=== PATIENT | male | born 1940 | race Caucasian/White ===

== ENCOUNTER 2017-11-26 15:13 | Emergency (ER) | payer OTHER ==
[~2017-11-26] VITALS: Ht 185.4 cm; Wt 152.7 kg
[~2017-11-26 15:13] MED LIST: ALEVE220 M2 PO; ATROVENT 00.5 MG/2.5 IH; ATROVENT H200 INHALA IH; BENICAR20 MG PO; BENICAR40 MG PO; CRESTOR20 MG PO; FLONASE16 G1 BOTH NARES; FLOVENT DISKUS1 DIS2 IH; FLUTICASONE PRO16 GM BOTH NARES; FUROSEMIDE20 MG PO; FUROSEMIDE40 MG PO; GARCINIA CAMBO1 EACH PO; GLUCOSAMINE H1500 MG PO; LEVOFLOXACIN750 MG PO; LOPRESSOR100 M1 PO; MACROBID100 MG PO; METOPROLOL TAR100 MG PO; NIACIN ER500 MG PO; OMEPRAZOLE40 M1 PO; PREDNISONE10 MG PO; SPIRIVA1 INHALATI IH; SPIRONOLACTONE25 MG PO; SYMBICORT60 INHALAT IH; TAMSULOSIN HCL0.4 MG PO; TEMOVATE 0.05%15 G1 TP; WARFARIN SODIU7.5 MG PO; WARFARIN SODIUM1 MG PO; WARFARIN SODIUM4 MG PO; WARFARIN SODIUM5 MG PO; ZANTAC150 MG PO; [UNRECOGNIZED DRUG - OTHER] TP
[2017-11-26 16:24] LABS: BASOPHIL (%) 0.5 % (0-1); EOSINOPHIL (%) 4.7 % (0-5); EOSINOPHIL COUNT 0.4 K/uL (0-0.3); HEMATOCRIT 35.8 % (38.0-50.0); HEMOGLOBIN 11.3 G/DL (12.5-16.6); IMMATURE GRANULOCYTE (%) 0.5 % (0.0-0.7); LYMPHOCYTE (%) 10.5 % (15-42); LYMPHOCYTE COUNT 0.9 K/uL (1.0-2.8); MCH 31.7 PG (29.0-34.0); MCHC 31.6 G/DL (30.0-36.0); MCV 100.3 FL (86-99); MONOCYTE (%) 8.9 % (3-12); MONOCYTE COUNT 0.7 K/uL (0-0.8); NEUTROPHIL (%) 74.9 % (45-76); NEUTROPHIL COUNT 6.1 K/uL (1.8-6.4); PLATELET COUNT 105 K/uL (156-360); RBC DIS.WIDTH-CV 12.3 % (11.8-14.6); RBC DIS.WIDTH-SD 45.7 % (39-53); RED BLOOD COUNT 3.57 M/uL (4.00-5.50); WHITE BLOOD COUNT 8.1 K/uL (4.1-10.2)
[2017-11-26 16:34] LABS: CHLORIDE 94 mEq/L (99-109); POTASSIUM 4.6 mEq/L (3.7-5.4); SODIUM 139 mEq/L (136-147)
[2017-11-26 16:36] LABS: GLUCOSE 141 mg/dL (70-99)
[2017-11-26 16:40] LABS: CREATININE 1.2 mg/dL (0.6-1.3); GFR ESTIMATE (CALCULATED) > 59 mL/min/ (58.99-99999)
[2017-11-26 16:41] LABS: UREA NITROGEN (BUN) 24 mg/dL (9-23)
[2017-11-26] MEDS ORDERED: PERCOCET 5/31 TABLET PO (20:21)
[2017-11-26 20:36] VITALS: BP 98/55
== END 2017-11-26 20:36 | disposition home or self-care (01) ==
LOC: EME 15:13
PROVIDERS: Emergency Medicine
DX: S02.2XXA Fracture of nasal bones, initial encounter for closed fracture (principal); S01.21XA Laceration without foreign body of nose, initial encounter; R07.81 Pleurodynia; W01.0XXA Fall on same level from slipping, tripping and stumbling without subsequent striking against object, initial encounter; Y93.01 Activity, walking, marching and hiking; Y92.480 Sidewalk as the place of occurrence of the external cause; Z23 Encounter for immunization; Z79.01 Long term (current) use of anticoagulants; J44.9 Chronic obstructive pulmonary disease, unspecified; Z95.0 Presence of cardiac pacemaker; K21.9 Gastro-esophageal reflux disease without esophagitis; N40.0 Benign prostatic hyperplasia without lower urinary tract symptoms; Z87.891 Personal history of nicotine dependence
CPT/HCPCS: 70450; 70486; 71046; 71260; 74177; 80048; 85025; 86850; 86900; 86901; 99281; 99285

== ENCOUNTER 2017-12-19 14:51 | Emergency (ER) | payer OTHER ==
[~2017-12-19] VITALS: Ht 188 cm; Wt 151.2 kg
[~2017-12-19 14:51] MED LIST changes: +PERCOCET 5/31 TABLET PO
[2017-12-19 15:18] LABS: HEMATOCRIT 37.1 % (38.0-50.0); HEMOGLOBIN 11.8 G/DL (12.5-16.6); MCH 31.6 PG (29.0-34.0); MCHC 31.8 G/DL (30.0-36.0); MCV 99.5 FL (86-99); PLATELET COUNT 116 K/uL (156-360); RBC DIS.WIDTH-CV 12.2 % (11.8-14.6); RBC DIS.WIDTH-SD 44.6 % (39-53); RED BLOOD COUNT 3.73 M/uL (4.00-5.50); WHITE BLOOD COUNT 7.2 K/uL (4.1-10.2)
[2017-12-19 15:23] LABS: VENOUS PCO2 87 mm Hg (41-51)
[2017-12-19 15:24] LABS: CARBON DIOXIDE (BICARBONATE) > 40.0 MEQ/L (20-31)
[2017-12-19 15:30] LABS: CHLORIDE 94 mEq/L (99-109); POTASSIUM 4.2 mEq/L (3.7-5.4); SODIUM 143 mEq/L (136-147)
[2017-12-19 15:35] LABS: CREATININE 1.3 mg/dL (0.6-1.3); GFR ESTIMATE (CALCULATED) 57 mL/min/ (58.99-99999); GLUCOSE 134 mg/dL (70-99)
[2017-12-19 15:36] LABS: UREA NITROGEN (BUN) 20 mg/dL (9-23)
[2017-12-19 19:07] LABS: BASE EXCESS 19.4 mEq/L (-3 to +3); BICARBONATE 48.5 mEq/L (22-26); CARBOXY HGB 1.6 % (0-5); COMMENTS - BLOOD GASES A+C+; DEVICE NC; METHEMOGLOBIN 0.9 % (0-1.5); O2 FLOW 4 L/MIN; PCO2 82 mm Hg (35-45); PO2 81 mm Hg (80-100); SITE RR; TOTAL RESP RATE 18 resp/min; pH 7.38 (7.35-7.45)
[2017-12-19 19:27] LABS: TROP-I INTERPRETATION NEGATIVE; TROPONIN-I < 0.01 ng/mL (0.0-0.30)
[2017-12-19] MEDS ORDERED: PREDNISONE20 MG PO (19:41)
[2017-12-19 21:08] VITALS: BP 110/76
== END 2017-12-19 21:09 | disposition home or self-care (01) ==
LOC: EME 14:51
PROVIDERS: Emergency Medicine; Physician Assistant
DX: J44.1 Chronic obstructive pulmonary disease with (acute) exacerbation (principal); E87.4 Mixed disorder of acid-base balance; Z87.891 Personal history of nicotine dependence; K21.9 Gastro-esophageal reflux disease without esophagitis; Z95.0 Presence of cardiac pacemaker; Z79.01 Long term (current) use of anticoagulants; N40.0 Benign prostatic hyperplasia without lower urinary tract symptoms
CPT/HCPCS: 36600; 71045; 80048 91; 82803; 83605; 84484; 85027; 87040; 93005; 94640; 99281; 99285; J1956; J2930; J7030

== ENCOUNTER 2018-01-21 11:04 | Inpatient (IN) | payer OTHER ==
[~2018-01-21] VITALS: Ht 172.7 cm; Wt 165.9 kg
[~2018-01-21 11:04] MED LIST changes: +PREDNISONE20 MG PO
[2018-01-21 12:08] LABS: HEMATOCRIT 37.7 % (38.0-50.0); HEMOGLOBIN 11.4 G/DL (12.5-16.6); MCH 31.1 PG (29.0-34.0); MCHC 30.2 G/DL (30.0-36.0); PLATELET COUNT 146 K/uL (156-360); RBC DIS.WIDTH-CV 12.6 % (11.8-14.6); RBC DIS.WIDTH-SD 46.8 % (39-53); RED BLOOD COUNT 3.66 M/uL (4.00-5.50); WHITE BLOOD COUNT 7.3 K/uL (4.1-10.2)
[2018-01-21 12:15] LABS: INTER. NORMALIZED RATIO 2.5
[2018-01-21 12:16] LABS: CHLORIDE 92 mEq/L (99-109); POTASSIUM 4.7 mEq/L (3.7-5.4); SODIUM 143 mEq/L (136-147)
[2018-01-21 12:18] LABS: GLUCOSE 98 mg/dL (70-99); PTT 46.9 SEC (25-37)
[2018-01-21 12:20] LABS: CARBON DIOXIDE (BICARBONATE) > 40.0 mEq/L (20-31)
[2018-01-21 12:21] LABS: CREATININE 1.2 mg/dL (0.6-1.3); GFR ESTIMATE (CALCULATED) > 59 mL/min/ (58.99-99999)
[2018-01-21 12:22] LABS: UREA NITROGEN (BUN) 20 mg/dL (9-23)
[2018-01-21 12:29] LABS: TROP-I INTERPRETATION NEGATIVE; TROPONIN-I < 0.01 ng/mL (0.0-0.30)
[2018-01-21 12:31] LABS: COMMENTS - BLOOD GASES A+C+; DEVICE NC; O2 FLOW 4 L/MIN; PCO2 92 mm Hg (35-45); PO2 59 mm Hg (80-100); SITE RR; TOTAL RESP RATE 14 resp/min; pH 7.36 (7.35-7.45)
[2018-01-21 12:32] LABS: BASE EXCESS 22.1 mEq/L (-3 to +3); CARBOXY HGB 2.1 % (0-5); METHEMOGLOBIN 0.7 % (0-1.5)
[2018-01-21 14:19] LABS: APPEARANCE SL.HAZY ((CLEAR)); BILIRUBIN NEGATIVE; BLOOD NEGATIVE; COLOR YELLOW ((YELLOW)); GLUCOSE (STRIP) NEGATIVE; KETONES NEGATIVE; LEUKOCYTES MODERATE; NITRITE NEGATIVE; PROTEIN (STRIP) 30; SPECIFIC GRAVITY 1.021 (1.000-1.030)
[2018-01-21 14:41] LABS: BACTERIA NONE SEEN /HPF; CALCIUM OXALATE CRYSTALS 1+ /HPF; EPITHELIAL CELLS NONE SEEN /HPF; MUCUS TRACE /LPF; RED BLOOD CELLS NONE SEEN /HPF (0-5); UCUL ADDED? YES; WHITE BLOOD CELLS 30-40 /HPF (0-5)
[2018-01-21] MEDS ORDERED: COUMADIN3 MG PO (14:58)
[2018-01-21] MEDS ORDERED: COUMADIN4 MG PO (14:58)
[2018-01-21] MEDS ORDERED: CRESTOR10 MG PO (15:01)
[2018-01-21] MEDS ORDERED: PROVENTIL,2.5 MG/3 M IH (15:02)
[2018-01-21] MEDS ORDERED: OMEPRAZOLE40 M1 PO (15:02)
[2018-01-21] MEDS ORDERED: TYLENOL EXTRA500 MG PO (15:03)
[2018-01-21] MEDS ORDERED: VITAMIN D-32000 UNI2 PO (15:03)
[2018-01-21] MEDS ORDERED: MUCINEX1200 MG PO (15:04)
[2018-01-21] MEDS ORDERED: SALINE NOSE SPR45 M1 BOTH NARES (15:04)
[2018-01-21 16:17] VITALS: BP 134/93
[2018-01-21 21:20] LABS: BASE EXCESS 20.1 mEq/L (-3 to +3); BICARBONATE 49.7 mEq/L (22-26); CARBOXY HGB 2.2 % (0-5); COMMENTS - BLOOD GASES A+C+; DEVICE HFNC; METHEMOGLOBIN 1.6 % (0-1.5); O2 FLOW 15 L/MIN; PCO2 88 mm Hg (35-45); PO2 73 mm Hg (80-100); SITE LR; TOTAL RESP RATE 20 resp/min; pH 7.36 (7.35-7.45)
[2018-01-22 00:26] VITALS: BP 116/66
[2018-01-22 05:59] LABS: HEMATOCRIT 38.3 % (38.0-50.0); HEMOGLOBIN 11.4 G/DL (12.5-16.6); MCH 30.3 PG (29.0-34.0); MCHC 29.8 G/DL (30.0-36.0); MCV 101.9 FL (86-99); NRBC (%) 0.3 /100 WBC (0-0); PLATELET COUNT 140 K/uL (156-360); RBC DIS.WIDTH-CV 12.7 % (11.8-14.6); RBC DIS.WIDTH-SD 47.3 % (39-53); RED BLOOD COUNT 3.76 M/uL (4.00-5.50); WHITE BLOOD COUNT 6.3 K/uL (4.1-10.2)
[2018-01-22 06:15] LABS: INTER. NORMALIZED RATIO 2.3
[2018-01-22 06:27] LABS: CHLORIDE 92 MEQ/L (99-109); CREATININE 1.2 MG/DL (0.6-1.3); GFR ESTIMATE (CALCULATED) > 59 mL/min/ (58.99-99999); POTASSIUM 4.9 MEQ/L (3.7-5.4); SODIUM 141 MEQ/L (136-147); UREA NITROGEN (BUN) 20 mg/dL (9-23)
[2018-01-22 06:28] LABS: GLUCOSE 175 mg/dL (70-99)
[2018-01-22 06:41] LABS: CARBON DIOXIDE (BICARBONATE) > 40.0 MEQ/L (20-31)
[2018-01-22 08:17] VITALS: BP 106/75
[2018-01-22 16:23] VITALS: BP 116/66
[2018-01-23] VITALS: BP 160/85
[2018-01-23 06:08] LABS: BASOPHIL (%) 0.1 % (0-1); EOSINOPHIL (%) 0 % (0-5); HEMATOCRIT 39.3 % (38.0-50.0); HEMOGLOBIN 11.9 G/DL (12.5-16.6); IMMATURE GRANULOCYTE (%) 0.5 % (0.0-0.7); LYMPHOCYTE (%) 6.2 % (15-42); LYMPHOCYTE COUNT 0.8 K/uL (1.0-2.8); MCH 30.2 PG (29.0-34.0); MCHC 30.3 G/DL (30.0-36.0); MCV 99.7 FL (86-99); MONOCYTE (%) 4.6 % (3-12); MONOCYTE COUNT 0.6 K/uL (0-0.8); NEUTROPHIL (%) 88.6 % (45-76); NEUTROPHIL COUNT 11.4 K/uL (1.8-6.4); PLATELET COUNT 170 K/uL (156-360); RBC DIS.WIDTH-CV 12.8 % (11.8-14.6); RBC DIS.WIDTH-SD 46.9 % (39-53); RED BLOOD COUNT 3.94 M/uL (4.00-5.50); WHITE BLOOD COUNT 12.8 K/uL (4.1-10.2)
[2018-01-23 06:17] LABS: INTER. NORMALIZED RATIO 2.5
[2018-01-23 06:41] LABS: CHLORIDE 90 MEQ/L (99-109); CREATININE 1.3 MG/DL (0.6-1.3); GFR ESTIMATE (CALCULATED) 57 mL/min/ (58.99-99999); GLUCOSE 148 mg/dL (70-99); POTASSIUM 4.6 MEQ/L (3.7-5.4); SODIUM 140 MEQ/L (136-147); UREA NITROGEN (BUN) 27 mg/dL (9-23)
[2018-01-23 06:42] LABS: CARBON DIOXIDE (BICARBONATE) > 40.0 MEQ/L (20-31)
[2018-01-23 07:42] VITALS: BP 134/85
[2018-01-23 15:51] VITALS: BP 124/88
[2018-01-24 00:48] VITALS: BP 104/73
[2018-01-24 06:30] LABS: BASOPHIL (%) 0.1 % (0-1); EOSINOPHIL (%) 0 % (0-5); HEMATOCRIT 36.7 % (38.0-50.0); HEMOGLOBIN 11.3 G/DL (12.5-16.6); IMMATURE GRANULOCYTE (%) 0.6 % (0.0-0.7); LYMPHOCYTE (%) 7.7 % (15-42); LYMPHOCYTE COUNT 0.9 K/uL (1.0-2.8); MCH 30.1 PG (29.0-34.0); MCHC 30.8 G/DL (30.0-36.0); MCV 97.9 FL (86-99); MONOCYTE (%) 5.6 % (3-12); MONOCYTE COUNT 0.7 K/uL (0-0.8); NEUTROPHIL COUNT 10.3 K/uL (1.8-6.4); PLATELET COUNT 161 K/uL (156-360); RBC DIS.WIDTH-CV 12.6 % (11.8-14.6); RBC DIS.WIDTH-SD 45.2 % (39-53); RED BLOOD COUNT 3.75 M/uL (4.00-5.50); WHITE BLOOD COUNT 11.9 K/uL (4.1-10.2)
[2018-01-24 06:35] LABS: INTER. NORMALIZED RATIO 2.7
[2018-01-24 07:01] LABS: CHLORIDE 90 MEQ/L (99-109); CREATININE 1.2 MG/DL (0.6-1.3); GFR ESTIMATE (CALCULATED) > 59 mL/min/ (58.99-99999); GLUCOSE 162 mg/dL (70-99); POTASSIUM 4.3 MEQ/L (3.7-5.4); SODIUM 137 MEQ/L (136-147); UREA NITROGEN (BUN) 32 mg/dL (9-23)
[2018-01-24 07:17] VITALS: BP 126/83
[2018-01-24 16:20] VITALS: BP 122/88
[2018-01-24 22:37] VITALS: BP 115/72
[2018-01-25 06:39] LABS: BASOPHIL (%) 0.2 % (0-1); EOSINOPHIL (%) 0 % (0-5); HEMATOCRIT 41.7 % (38.0-50.0); IMMATURE GRANULOCYTE (%) 0.8 % (0.0-0.7); LYMPHOCYTE (%) 8.6 % (15-42); LYMPHOCYTE COUNT 1.2 K/uL (1.0-2.8); MCH 30.3 PG (29.0-34.0); MCHC 31.2 G/DL (30.0-36.0); MCV 97.2 FL (86-99); MONOCYTE (%) 5.7 % (3-12); MONOCYTE COUNT 0.8 K/uL (0-0.8); NEUTROPHIL (%) 84.7 % (45-76); NEUTROPHIL COUNT 12.2 K/uL (1.8-6.4); PLATELET COUNT 184 K/uL (156-360); RBC DIS.WIDTH-CV 12.9 % (11.8-14.6); RBC DIS.WIDTH-SD 45.5 % (39-53); RED BLOOD COUNT 4.29 M/uL (4.00-5.50); WHITE BLOOD COUNT 14.4 K/uL (4.1-10.2)
[2018-01-25 06:52] LABS: INTER. NORMALIZED RATIO 2.8
[2018-01-25 07:01] LABS: CHLORIDE 88 MEQ/L (99-109); CREATININE 1.4 MG/DL (0.6-1.3); GFR ESTIMATE (CALCULATED) 52 mL/min/ (58.99-99999); GLUCOSE 168 mg/dL (70-99); POTASSIUM 4.2 MEQ/L (3.7-5.4); SODIUM 135 MEQ/L (136-147); UREA NITROGEN (BUN) 37 mg/dL (9-23)
[2018-01-25 07:19] VITALS: BP 138/73
[2018-01-25 16:14] VITALS: BP 111/83
[2018-01-26] VITALS: BP 127/64
[2018-01-26 06:58] LABS: BASOPHIL (%) 0.2 % (0-1); EOSINOPHIL (%) 0.1 % (0-5); HEMATOCRIT 40.2 % (38.0-50.0); HEMOGLOBIN 12.6 G/DL (12.5-16.6); IMMATURE GRANULOCYTE (%) 1.1 % (0.0-0.7); LYMPHOCYTE (%) 12.7 % (15-42); LYMPHOCYTE COUNT 1.7 K/uL (1.0-2.8); MCHC 31.3 G/DL (30.0-36.0); MCV 95.7 FL (86-99); MONOCYTE (%) 9.4 % (3-12); MONOCYTE COUNT 1.3 K/uL (0-0.8); NEUTROPHIL (%) 76.5 % (45-76); NEUTROPHIL COUNT 10.2 K/uL (1.8-6.4); PLATELET COUNT 153 K/uL (156-360); RBC DIS.WIDTH-CV 12.8 % (11.8-14.6); RBC DIS.WIDTH-SD 44.9 % (39-53); WHITE BLOOD COUNT 13.3 K/uL (4.1-10.2)
[2018-01-26 07:03] LABS: INTER. NORMALIZED RATIO 2.8
[2018-01-26 07:22] LABS: CHLORIDE 91 MEQ/L (99-109); CREATININE 1.2 MG/DL (0.6-1.3); GFR ESTIMATE (CALCULATED) > 59 mL/min/ (58.99-99999); SODIUM 139 MEQ/L (136-147); UREA NITROGEN (BUN) 34 mg/dL (9-23)
[2018-01-26 07:24] LABS: GLUCOSE 97 mg/dL (70-99)
[2018-01-26 07:35] VITALS: BP 133/82
[2018-01-26] MEDS ORDERED: CEFTIN500 MG PO (15:18)
[2018-01-26] MEDS ORDERED: PREDNISONE10 MG PO (15:19)
[2018-01-26] MEDS ORDERED: LOPRESSOR25 MG PO (15:25)
[2018-01-26] MEDS ORDERED: SENNA PLUS TAB1 EACH PO (15:27)
[2018-01-26 16:03] VITALS: BP 129/70
== END 2018-01-26 18:20 | disposition home health service (06) | DRG 190 ==
LOC: EME 11:04 → EDOF 14:04 → 5EAST 14:04 → ENRESERV 14:05 → 5EAST 15:58
PROVIDERS: Hospitalist; Internal Medicine; Nurse Practitioner Family; Physician Assistant
PROC: 5A09357 Assistance with Respiratory Ventilation, Less than 24 Consecutive Hours, Continuous Positive Airway Pressure (ICD-10-PCS; principal; 2018-01-21)
DX: J44.1 Chronic obstructive pulmonary disease with (acute) exacerbation (principal); J96.21 Acute and chronic respiratory failure with hypoxia; J96.22 Acute and chronic respiratory failure with hypercapnia; I50.43 Acute on chronic combined systolic (congestive) and diastolic (congestive) heart failure; I48.2 Chronic atrial fibrillation; I11.0 Hypertensive heart disease with heart failure; N17.9 Acute kidney failure, unspecified; I42.0 Dilated cardiomyopathy; I27.20 Pulmonary hypertension, unspecified; I95.9 Hypotension, unspecified; I34.0 Nonrheumatic mitral (valve) insufficiency; G47.33 Obstructive sleep apnea (adult) (pediatric); K21.9 Gastro-esophageal reflux disease without esophagitis; N40.0 Benign prostatic hyperplasia without lower urinary tract symptoms; E66.01 Morbid (severe) obesity due to excess calories; Z68.43 Body mass index [BMI] 50.0-59.9, adult; Z95.810 Presence of automatic (implantable) cardiac defibrillator; Z99.81 Dependence on supplemental oxygen; Z79.01 Long term (current) use of anticoagulants; Z79.51 Long term (current) use of inhaled steroids; Z87.891 Personal history of nicotine dependence
CPT/HCPCS: 36600; 71045; 71046; 80048; 81003; 82803; 83605; 83880; 84484; 85025; 85027; 85610; 85730; 86850; 86900; 86901; 87040; 87086; 93005; 93306; 94640; 94640 76; 94660; 94667; 94668; 94760; 94799; 99202; 99281; 99285; J0696; J1940; J2920; J3010; J3475